=== PATIENT | male | born 1970 | race Two or more races ===

== ENCOUNTER 2025-01-17 18:30 | Emergency (ER) | payer OTHER ==
[~2025-01-17] VITALS: Ht 172.7 cm; Wt 76.2 kg
[2025-01-17] MEDS ORDERED: ONDANSETRON HCL/PF 4 MG/2 ML VIAL ONE (19:04)
[2025-01-17] MEDS ORDERED: MORPHINE SULFATE INJ 4 MG/ML DISP.SYRIN ONE (19:04)
[2025-01-17 19:06] LABS: PLATELET COUNT (AUTO) 223 K/uL (150-450); RED BLOOD CELL COUNT(AUTO) 4.99 MIL/uL (4.5-6.0); RED CELL DISTRIBUTION WIDTH 13.6 % (11.5-15.0); WHITE BLOOD COUNT (AUTO) 10.4 K/uL (4.3-11.0)
[2025-01-17] MEDS: MORPHINE SULFATE INJ 2 MG/ML DISP.SYRIN IV ONE (19:12)
[2025-01-17] MEDS: ONDANSETRON HCL/PF 4 MG/2 ML VIAL IV ONE (19:12)
[2025-01-17 19:16] LABS: CALCIUM, SERUM 9.0 mg/dL (8.5-10.1); CREATININE 1.0 mg/dL (0.6-1.3); SODIUM SERUM 137 mmol/L (136-145); UREA NITROGEN, BLOOD 18 mg/dL (7-18)
[2025-01-17 19:29] LABS: ASPARTATE AMINOTRANSFERASE 21 U/L (15-37); NT-PRO BNP 14 pg/mL (0-125); TOTAL PROTEIN, SERUM 7.1 g/dL (6.4-8.2)
[2025-01-17] MEDS ORDERED: DOXY-326 PO (22:29)
[2025-01-17 22:39] VITALS: BP 128/81; TEMP 98.5; O2SAT 99
== END 2025-01-17 22:40 | disposition home or self-care (01) ==
LOC: ER 18:32
DX: R07.9 Chest pain, unspecified (principal)
CPT/HCPCS: 99285; 96374; 71045; 96375; 93005; 85025; 80048; 80076; 85378; 36415; 84484 ×2; 83880; J2270; J2405

== ENCOUNTER 2025-05-10 13:37 | Emergency (ER) | payer OTHER ==
[~2025-05-10] VITALS: Ht 172.7 cm; Wt 77.1 kg
[~2025-05-10 13:37] MED LIST: DOXY-326 PO
[2025-05-10 13:43] VITALS: BP 131/73; TEMP 99.6
[2025-05-10] MEDS ORDERED: ALBU18HF2 INH (15:15)
[2025-05-10] MEDS ORDERED: DOXY100T2 PO (15:15)
[2025-05-10 15:21] VITALS: O2SAT 97
== END 2025-05-10 15:22 | disposition home or self-care (01) ==
LOC: ER 13:41
DX: J18.9 Pneumonia, unspecified organism (principal); R05.9 Cough, unspecified; Z87.01 Personal history of pneumonia (recurrent); Z20.822 Contact with and (suspected) exposure to COVID-19
CPT/HCPCS: 71045-TC